=== PATIENT | female | born 1970 | race Caucasian/White ===

== ENCOUNTER → 2016-10-14 | Day surgery (SDC) | payer OTHER ==
[~2016-10-14] MED LIST: MIDAZOLAM HCL 2 MG/2 ML SINGLE DOSE VIAL ONE
--- NOTE | 2016-10-15 11:47 | PATH ---
Surgical Pathology Report Patient Name: SUELLEN BOYD Med. Rec. #: [id number] /Age/Gender: 1970 (Age: 45) / F Account: [id number] Location: COUNT INCLUDES THE [facility] RADIOLOGY U Taken: 10/14/2016 Received: 10/14/2016 Reported: 10/15/2016 Physicians: Nicole Walden Specimen(s) Received RIGHT BREAST 3 O'CLOCK, 1-4CM FN Clinical History Probably benign Final Diagnosis RIGHT BREAST, 3:00 1-4 CM FROM NIPPLE, ULTRASOUND GUIDED NEEDLE CORE BIOPSY: SCLEROSED FIBROADENOMA. Electronically Signed Edward Goss M.D. Gross Description Received in formalin labeled "right breast 3:00, 1-4 cmfn," are 4 wren-yellow, cylindrical portions of fibroadipose tissue ranging from 1.1-1.7 cm in length and averaging 0.2 cm in diameter. The specimens are submitted in toto in one cassette. Time to formalin fixation: 2 minutes Total formalin fixation time: Approximately 9 hours. /10/14/2016 [facility]10/14/2016
== END | disposition home or self-care (01) ==
LOC: FRADUS-SUR 08:23
PROVIDERS: ATTEND Physician Assistant
PROC: 0HBT3ZX Excision of Right Breast, Percutaneous Approach, Diagnostic (ICD-10-PCS; principal; 2016-10-14)
DX: N63 Unspecified lump in breast (principal); D24.1 Benign neoplasm of right breast
CPT/HCPCS: 19083; 87899; 88305-TC; A4648; G0206-TC